=== PATIENT | male | born 1970 | race Caucasian/White ===

== ENCOUNTER 2024-01-07 08:11 | Outpatient (AMB) | payer BC, SELFPAY ==
--- NOTE | 2024-01-07 08:23 | MHC.OFFWIV ---
Intake Vital Signs 01/07/24 08:27 Height 6 ft 1 in BP 140/80 H Blood Pressure Location Rt brachial Position Sitting Pulse 78 Pulse Source Pulse Oximeter Temp 97.9 F Temp Source Oral Pulse Oximetry (%) 98 Intake Visit Reasons: EP Stomach issue Intake Note: pt is here for blood when having bowel movements, when wiping and toilet bowl, and also side pain that has been on and off Patient Tobacco Use Status: Never used Tobacco Allergies penicillin V Allergy (Unknown, Verified 01/07/24 08:54) had an episode of rash when he was a child Medication List - Last Reconciled 01/07/24 by SUMAN Byers No Known Home Meds Do you need a note to return to daycare/school/sports/work: No HPI HPI Comments History of Present Illness Details Patient is a 53-year-old male in today for a sick. He reports 5 days prior to this appointment that he developed pain in the right lower quadrant while he was mowing his lawn. States that he had intermittent pain after that that has gotten progressively better. Patient states that the pain has resolved today. Denies any fever chills, denies any nausea/vomiting/diarrhea. Patient has not utilized any medications at this time. [facility] Social History Patient Tobacco Use Status: Never used Tobacco Review of Systems Const All systems reviewed & are unremarkable except as noted in HPI and below Physical Exam Vital Signs: Last Vital Signs Temp 97.9 F 01/07/24 08:27 Pulse 78 01/07/24 08:27 BP 140/80 H 01/07/24 08:27 Pulse Ox 98 01/07/24 08:27 Const Other: Appearance: Alert.? Oriented X3.? No acute distress.? Head: Normocephalic, atraumatic Eyes: Pupils equal, round and reactive to light.? ENT: Pharynx normal.? Neck: Normal inspection.? Neck supple.? CVS: Normal heart rate and rhythm.? Pulses normal.? Respiratory: No respiratory distress.? Breath sounds normal.? Abdomen: Soft and nontender.? Neuro: Oriented X 3.? No motor deficit.? No sensory deficit. CN 2-12 intact Assessment & Plan Assessment & Plan (1) Abdominal pain: Comment: Pain had resolved by today. No tenderness to palpation and deep palpation. Will draw labs including CBC, CMP, ESR, lipase, amylase, CRP. Code(s): R10.9 - Unspecified abdominal pain Qualifiers: Abdominal location: right lower quadrant Qualified Code(s): R10.31 - Right lower quadrant pain Plan: Take your medications as prescribed. If you were prescribed antibiotics today, it is important that you take your medication to their entirety, do not skip any doses, do not finish them early. Follow-up with your primary care provider this week. Return to the emergency department with new or worsening symptoms. Such as fevers, chills, chest pain, shortness of breath, nausea, vomiting, dizziness, headache, vision changes, lethargy In case of emergency call 911 Plan Follow up with PCP. Orders: Orders Erythrocyte Sedimentation Rate Today R10.9 - Unspecified abdominal pain Lipase Today R10.9 - Unspecified abdominal pain Complete Blood Count Auto Diff Today R10.9 - Unspecified abdominal pain Comprehensive Met. Panel Today R10.9 - Unspecified abdominal pain C Reactive Protein Today R10.9 - Unspecified abdominal pain Amylase Today R10.9 - Unspecified abdominal pain Coding Level of Care Code Est Pt Level 3 (40702) Diagnoses Right lower quadrant abdominal pain R10.31 Abdominal location: right lower quadrant Time Spent (min) 21
[2024-01-07 08:27] VITALS: BP 140/80; PULSE 78; TEMP 36.6; O2SAT 98
== END 2024-01-07 09:09 | disposition home or self-care (01) ==
PROVIDERS: PCP Physician Assistant; Visit Provider Nurse Practitioner Primary Care
DX: R10.31 Right lower quadrant pain (principal)
CPT/HCPCS: 99213

== ENCOUNTER 2024-01-07 08:53 | Outpatient (REF) | payer BC, SELFPAY ==
[2024-01-07 10:12] LABS: MANUAL DIFF FLAG NO
[2024-01-07 10:21] LABS: Basophils Percent Auto 0.4 % (0-2); Eosinophils Absolute Auto 0.1 X10*3/uL (0.0-0.4); Eosinophils Percent Auto 1.5 % (0-4); Hematocrit 43.8 % (42.0-52.0); Hemoglobin 15.4 g/dl (14.0-18.0); Imm Gran Abs Auto 0.01 X10*3/uL (0.00-0.03); Imm Gran Pct Auto 0.2 % (0.0-0.4); Lymphocytes Absolute Auto 1.6 X10*3/uL (1.2-4.9); Lymphocytes Percent Auto 29.9 % (20-40); Mean Corpuscular HGB Conc 35.2 g/dl (31.0-36.0); Mean Corpuscular Hemoglobin 30.5 pg (27.0-33.0); Mean Corpuscular Volume 86.7 fL (80.0-98.0); Mean Platelet Volume 9.9 fL (9.4-12.4); Monocytes Absolute Auto 0.4 X10*3/uL (0.1-1.2); Monocytes Percent Auto 8.2 % (2-11); Neutrophils Absolute Auto 3.1 x10*3/uL (2.0-8.3); Neutrophils Percent Auto 59.8 % (45-73); Platelet Count 183 X10*3/uL (160-400); Red Blood Count 5.05 X10*6/uL (4.60-5.80); White Blood Count 5.2 X10*3/uL (4.8-10.8)
[2024-01-07 10:56] LABS: Alanine Aminotransferase 29 U/L (0-40); Albumin Level 4.4 g/dL (3.5-5.0); Alkaline Phosphatase 51 U/L (39-117); Amylase 41 U/L (28-100); Anion Gap 10 (12-20); Aspartate Amino Transferase 21 U/L (5-37); Bilirubin Total 0.5 mg/dL (0.0-1.0); Blood Urea Nitrogen 15 mg/dL (9-16); C Reactive Protein 0.11 mg/dL (< or = 0.50); Calcium 9.4 mg/dL (8.4-10.2); Carbon Dioxide 28 mmol/L (22-29); Chloride 108 mmol/L (96-108); Estimated Glomerular Filt Rate > 60; Glucose Random 106 mg/dL (60-115); Lipase 24 U/L (8-78); Potassium 4.1 mmol/L (3.3-5.1); Sodium 142 mmol/L (135-145); Total Protein 6.8 g/dL (6.5-8.0)
[2024-01-07 11:16] LABS: Erythrocyte Sedimentation Rate 2 MM/HR (0-15)
== END 2024-01-07 08:54 | disposition home or self-care (01) ==
LOC: HO.HMGCLDS 08:53
PROVIDERS: Visit Provider Nurse Practitioner Primary Care
DX: R10.9 Unspecified abdominal pain (principal)
CPT/HCPCS: 36415; 80053; 82150; 83690; 85025; 85652; 86140

== ENCOUNTER 2024-01-30 09:19 | Outpatient (AMB) | payer BC, SELFPAY ==
--- NOTE | 2024-01-30 09:28 | A.OFFPC_ITS ---
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 He is in need of a complete physical exam. 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 He is overdue for initial screening colonoscopy. Patient referred for this today. He was seen at urgent care in [place] a couple weeks ago for right lower quadrant abdominal pain. He was diagnosed with a muscle strain. Pain resolved. Advised patient to schedule eye and dental exams. On ROS notes skin lesion x years on the abdomen that has slowly enlarged over time. Declines all vaccinations recommended today. [facility] Medical History (Updated 01/30/24 @ 10:18 by JASEN Curtis) Skin lesion Family History (Updated 01/30/24 @ 09:37 by Xuan Avila CMA) Mother HTN (hypertension) Cardiovascular disease Ovarian cancer Glaucoma Father Alcoholism Other FHx: mental illness Substance abuse Social History (Updated 01/30/24 @ 09:39 by Xuan Avila CMA) Housing: House Patient Tobacco Use Status: Former Tobacco user Cigarette Packs Per Day: 0.5 Years Smoked: 32 e-Cigarette/Vaping Use: Never Used Second Hand Smoke Exposure: No service: No Current occupational status: employed Current occupation: [employer] Current occupational exposures/hazards: No Cognitive needs: No Hearing needs: No Vision needs: No Questionnaire PHQ-9 Over the last 2 weeks, how often have you been bothered by any of the following problems? 1. Little interest or pleasure in doing things: not at all 2. Feeling down, depressed, or hopeless: not at all 3. Trouble falling or staying asleep, or sleeping too much: several days 4. Feeling tired or having little energy: several days 5. Poor appetite or overeating: not at all 6. Feeling bad about yourself - or that you are a failure or have let yourself or your family down: not at all 7. Trouble concentrating on things, such as reading the newspaper or watching television: not at all 8. Moving or speaking so slowly that other people could have noticed. Or the opposite - being so fidgety or restless that you have been moving around a lot more than usual: not at all 9. Thoughts that you would be better off or of hurting yourself in some way: not at all Total score: 2 Depression Screening Interpretation: Negative Depression Screening Done: Yes 15443 - PHQ-9 Billing: Yes Source: Developed by Drs. Carlos Manuel Carpio, Ceci Adhikari, John Antonio and colleagues, with an educational hiro from [employer]. Thrive Questionnaire Date Thrive assessed: 01/30/24 I am a: Patient What is your living situation today?: I have a steady place to live Within the past 12 months, did the food you bought not last and you didn't have the money to get more?: Never true Within the past 12 months, did you worry whether your food would run out before you got money to buy more?: Never true Do you have trouble paying for medicines?: No Do you have trouble getting transportation to medical appointments?: No Do you have trouble paying your heating and electricity bill?: No Do you have trouble taking care of your child, family member or friend?: No Do you have trouble with day-to-day activities such as bathing, preparing meals, shopping, managing finances, etc.?: No Are you currently unemployed and looking for a job?: No Are you interested in more education?: No Please select the resources that you would like help with: None Currently or been in a relationship where the following occur: no concerns reported THRIVE Score: 0 AUDIT C Alcohol Use Questionnaire (AUDIT-C) 1. How often do you have a drink containing alcohol?: 2-4 times a month 2. How many drinks containing alcohol do you have on a typical day when you are drinking?: 7 to 9 3. How often do you have six or more drinks on one occasion?: Weekly Total Score: 8 Score Reviewed/Action Taken: Yes (Discussed. Patient advised to decrease alcohol consumption. ) TREVIN-7 AMB Questionnaire TREVIN-7 Date TREVIN - 7 assessed: 01/30/24 Feeling nervous, anxious, or on edge: 0 = Not at all Not being able to stop or control worryin = Not at all Worrying too much about different things: 0 = Not at all Trouble relaxin = Several days Being so restless that it is hard to sit still: 0 = Not at all Becoming easily annoyed or irritable: 1 = Several days Feeling afraid as if something awful might happen: 1 = Several days Total TREVIN-7 score (0-4 normal; 5-9 mild; 10-14 moderate; 15-21 severe): 3 Source: Developed by Drs. Carlos Manuel Carpio, Ceci dAhikari, John Antonio and colleagues, with an educational hiro from [employer]. TREVIN-7 Assessment Billing TREVIN-7 Assessment Tool: TREVIN-7 Assessment 51562 Review of Systems Const Details: Constitutional: No unexplained weight loss, fever, chills, fatigue or night sweats. Eyes: No vision changes, blurry vision, double vision, eye pain, eye redness, eye discharge. ENT: No hearing loss, sneezing, congestion, runny nose or sore throat. Respiratory: No shortness of breath, cough or sputum production. Cardiovascular: No chest pain, chest pressure or chest discomfort. No palpitations or pedal edema. Gastrointestinal: No anorexia, nausea, vomiting or diarrhea. see HPI. Genitourinary: No dysuria, hematuria, urinary frequency. Neurologic: No headache, dizziness, syncope, unilateral weakness, ataxia, numbness or tingling in the extremities. Musculoskeletal: No muscle pain, back pain, joint pain or swelling. Hematologic/Lymphatics: No bleeding or bruising. No painful lymph nodes. Skin: No rash or itching. Endocrine: No cold or heat intolerance. No polyuria or polydipsia. Psychiatric: No depression or anxiety. No SI/HI. Physical exam (Primary Care) Vital Signs: Last Vital Signs Temp 97.9 F 01/30/24 09:40 Pulse 70 01/30/24 09:40 Resp 16 01/30/24 09:40 BP 120/82 01/30/24 12:34 Pulse Ox 98 01/30/24 09:40 Oxygen Delivery Method Room Air 01/30/24 09:40 BMI result Body Mass Index 27.5 Tobacco/Smoking Status: Tobacco use Status Tobacco use date assessed 01/30/24 01/30/24 09:44 Patient Tobacco Use Status Former Tobacco user 01/30/24 09:44 e-Cigarette/Vaping Use Never Used 01/30/24 09:44 PHQ-9: PHQ-9 Score PHQ-9: Total score 2 01/30/24 12:45 Depression Screening Interpretation: Negative Thrive Assessment: Date of Thrive Assessment Date Thrive assessed 01/30/24 01/30/24 09:44 Currently or been in a relationship where the following occur: no concerns reported Const Other: Constitutional: Alert, in no distress. Head: Normocephalic. Eyes: Pupils are equal, round and reactive to light. Extraocular muscles intact. Ear, Nose and Throat: Canals clear. TMs normal. Normal nasal mucosa. No nasal discharge. No oral lesions. Neck: Supple, Full range of motion. No lymphadenopathy. No palpable thyroid masses. Respiratory: Clear to auscultation. Cardiovascular: S1 S2 regular. No murmurs. No carotid bruits. Gastrointestinal: Abdomen soft, non-tender, non-distended. Normal bowel sounds. No palpable masses. Genitourinary: Patient deferred exam. Neurologic: No focal neurological deficits. Symmetric patellar reflexes. Moves all extremities spontaneously. Sensation intact bilaterally. Skin: ~1.5 cm raised erythematous/brownish irregularly shaped skin lesion on the right abdomen. Musculoskeletal: No gross deformities. Normal range of motion. Extremities: Warm and well perfused. No clubbing, cyanosis or edema. 3+ peripheral pulses bilaterally. Psychiatric: Normal mood and affect Assessment and Plan Assessment & Plan (1) Annual physical exam: Code(s): Z00.00 - Encounter for general adult medical examination without abnormal findings Plan: Patient is seen today for a routine physical. As part of this visit we reviewed the following issues, which are considered and essential part of preventative health in this age group: - Testicular cancer screening - Screening for colon cancer - Discussed Prostate cancer screening - Blood pressure screening annually - Cholesterol screening - Nutritional and exercise counseling - Counseling of injury prevention including fire prevention, smoke alarms and seat belt usage - Screening for depression - Education about skin cancer - Recommendations about immunizations - Recommendation of an eye exam - Screening for substance abuse (2) Encounter for screening for malignant neoplasm of prostate: Code(s): Z12.5 - Encounter for screening for malignant neoplasm of prostate (3) Screening for cardiovascular condition: Code(s): Z13.6 - Encounter for screening for cardiovascular disorders (4) Skin lesion: Code(s): L98.9 - Disorder of the skin and subcutaneous tissue, unspecified Plan: Referred to dermatology for evaluation. Orders: Orders Lipid Panel Today L98.9 - Disorder of the skin and subcutaneous tissue, unspecified, Z12.5 - Encounter for screening for malignant neoplasm of prostate, Z13.6 - Encounter for screening for cardiovascular disorders Complete Blood Count no Diff Today L98.9 - Disorder of the skin and subcutaneous tissue, unspecified, Z12.5 - Encounter for screening for malignant neoplasm of prostate, Z13.6 - Encounter for screening for cardiovascular d isorders Comprehensive Met. Panel Today L98.9 - Disorder of the skin and subcutaneous tissue, unspecified, Z12.5 - Encounter for screening for malignant neoplasm of prostate, Z13.6 - Encounter for screening for cardiovascular disorders Prostate Specific Antigen Today L98.9 - Disorder of the skin and subcutaneous tissue, unspecified, Z12.5 - Encounter for screening for malignant neoplasm of prostate, Z13.6 - Encounter for screening for cardiovascular disorders Referrals Dermatology Referral L98.9 - Disorder of the skin and subcutaneous tissue, unspecified Open Access Screening Colonoscopy Referral Z12.11 - Encounter for screening for malignant neoplasm of colon, Z12.12 - Encounter for screening for malignant neoplasm of rectum Coding Level of Care Code New Pt Prev Care 40-64y(63422) Diagnoses Annual physical exam Z00.00 Encounter for screening for malignant neoplasm of prostate Z12.5 Screening for cardiovascular condition Z13.6 Skin lesion L98.9 Additional Codes TREVIN-7 Assessment Billing - TREVIN-7 Assessment Tool: TREVIN-7 Assessment 50093 ([id number])
[2024-01-30 09:40] VITALS: BP 118/88; PULSE 70; RESP 16; TEMP 36.6; O2SAT 98; BMI 27.5
[2024-01-30 12:34] VITALS: BP 120/82
== END 2024-01-30 12:58 | disposition home or self-care (01) ==
PROVIDERS: PCP Physician Assistant Medical; Visit Provider Physician Assistant Medical
DX: Z00.00 Encounter for general adult medical examination without abnormal findings (principal); Z12.5 Encounter for screening for malignant neoplasm of prostate; Z13.6 Encounter for screening for cardiovascular disorders; L98.9 Disorder of the skin and subcutaneous tissue, unspecified
CPT/HCPCS: 99386

== ENCOUNTER 2024-01-30 10:36 | Outpatient (REF) | payer BC, SELFPAY ==
[2024-01-30 11:59] LABS: Hematocrit 45.5 % (42.0-52.0); Hemoglobin 15.8 g/dl (14.0-18.0); Mean Corpuscular HGB Conc 34.7 g/dl (31.0-36.0); Mean Corpuscular Hemoglobin 30.1 pg (27.0-33.0); Mean Corpuscular Volume 86.7 fL (80.0-98.0); Platelet Count 193 X10*3/uL (160-400); Red Blood Count 5.25 X10*6/uL (4.60-5.80); Red Cell Distribution Width 12.9 % (11.0-16.0); White Blood Count 4.6 X10*3/uL (4.8-10.8)
[2024-01-30 12:27] LABS: Alanine Aminotransferase 41 U/L (0-40); Albumin Level 4.6 g/dL (3.5-5.0); Alkaline Phosphatase 53 U/L (39-117); Anion Gap 11 (12-20); Aspartate Amino Transferase 26 U/L (5-37); Bilirubin Total 0.7 mg/dL (0.0-1.0); Blood Urea Nitrogen 16 mg/dL (9-16); Calcium 9.4 mg/dL (8.4-10.2); Carbon Dioxide 29 mmol/L (22-29); Chloride 104 mmol/L (96-108); Cholesterol 235 mg/dL (<200); Estimated Glomerular Filt Rate > 60; Glucose Random 94 mg/dL (60-115); HDL Cholesterol 46 mg/dL (>40); LDL Cholesterol Calculated 140 mg/dL (<100); Potassium 3.7 mmol/L (3.3-5.1); Sodium 140 mmol/L (135-145); Total Protein 7.2 g/dL (6.5-8.0); Triglycerides 246 mg/dL (<150)
[2024-01-30 12:37] LABS: Prostate Specific Antigen 0.74 ng/mL (<0.05-4.0)
== END 2024-01-30 10:37 | disposition home or self-care (01) ==
LOC: HO.WFDLDS 10:36
PROVIDERS: Visit Provider Physician Assistant Medical
DX: Z13.6 Encounter for screening for cardiovascular disorders (principal); Z12.5 Encounter for screening for malignant neoplasm of prostate; L98.9 Disorder of the skin and subcutaneous tissue, unspecified
CPT/HCPCS: 36415; 80053; 80061; 84153; 85027

== ENCOUNTER 2024-04-29 07:31 | Outpatient (REF) | payer BC, SELFPAY ==
[2024-04-29 11:56] LABS: Alanine Aminotransferase 34 U/L (0-40); Aspartate Amino Transferase 26 U/L (5-37); Cholesterol 223 mg/dL (<200); HDL Cholesterol 45 mg/dL (>40); LDL Cholesterol Calculated 148 mg/dL (<100); Triglycerides 154 mg/dL (<150)
== END 2024-04-29 07:32 | disposition home or self-care (01) ==
LOC: HO.WFDLDS 07:31
PROVIDERS: Visit Provider Physician Assistant Medical
DX: E78.5 Hyperlipidemia, unspecified (principal); Z78.9 Other specified health status
CPT/HCPCS: 36415; 80061; 84450; 84460

== ENCOUNTER 2024-05-07 15:00 | Outpatient (AMB) | payer BC, SELFPAY ==
--- NOTE | 2024-05-07 15:19 | MHC.PC.OV ---
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 Since blood work in 02/06/2024 ALT normalized. It is 34. AST is also normal at 26. He decreased alcohol consumption. Modified his diet. He lost some weight. His triglycerides decreased from 246-154. His total cholesterol decreased from 235-223. His LDL cholesterol increased from 140-148. His HDL cholesterol is 45. He eats a lot of cheese. ASCVD risk score is 16.5%. Patient's brother at age 59. They are not sure exactly the cause since he diet alone at home. He was not found for a few days. Patient is a former smoker. On ROS patient said he has had chest pain before. He had an episode a few years ago that he felt like he was having a heart attack, but it was a panic attack. He was seen at the ER. Patient says occasionally he will get a mild twinge in his chest on the right or left side associated with stress. It does not occur with exertion. He actually feels best when he is very active. He had this last night when he was anxious. It lasted 3 minutes and left-sided. It did not radiate. There was no dizziness, shortness of breath or diaphoresis. His blood pressure is 124/86. ROS: Constitutional: No unexplained weight loss, fever, chills, fatigue or night sweats. Eyes: No vision changes, blurry vision, double vision Respiratory: No shortness of breath, cough or sputum production. Cardiovascular: No palpitations or pedal edema. Gastrointestinal: No anorexia, nausea, vomiting or diarrhea. No abdominal pain or blood in stool. Neurologic: No headache, dizziness, syncope, unilateral weakness, ataxia, numbness or tingling in the extremities. Skin: No rash or itching. Endocrine: No cold or heat intolerance. No polyuria or polydipsia. Psychiatric: No depression Physical exam: Constitutional: Alert, in no distress. Eyes: Pupils are equal, round and reactive to light. Extraocular muscles intact. Neck: Supple, Full range of motion. No lymphadenopathy. Respiratory: Clear to auscultation. Cardiovascular: S1 S2 regular. No murmurs. . Gastrointestinal: Abdomen soft, non-tender, non-distended. Normal bowel sounds. No palpable masses. Neurologic: No focal neurological deficits Extremities: Warm and well perfused. No clubbing, cyanosis or edema. 3+ peripheral pulses bilaterally. Psychiatric: Normal mood and affect [facility] Medical History (Updated 05/07/24 @ 17:11 by JASEN Curtis) Elevated blood pressure reading Chest discomfort Hyperlipidemia Skin lesion Family History (Updated 01/30/24 @ 09:37 by Xuan Avila CMA) Mother HTN (hypertension) Cardiovascular disease Ovarian cancer Glaucoma Father Alcoholism Other FHx: mental illness Substance abuse Social History (Updated 01/30/24 @ 09:39 by Xuan Avila CMA) Housing: House Patient Tobacco Use Status: Former Tobacco user Cigarette Packs Per Day: 0.5 Years Smoked: 32 e-Cigarette/Vaping Use: Never Used Second Hand Smoke Exposure: No service: No Current occupational status: employed 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 Carlos Manuel Carpio, Ceci Adhikari, John Antonio and colleagues, with an educational hiro from [employer]. Physical exam (Primary Care) Vital Signs: Last Vital Signs Pulse 82 05/07/24 15:20 Resp 16 05/07/24 15:20 BP 124/86 05/07/24 15:20 Pulse Ox 96 05/07/24 15:20 Oxygen Delivery Method Room Air 05/07/24 15:20 BMI result Body Mass Index 26.0 Tobacco/Smoking Status: Tobacco use Status Tobacco use date assessed 01/30/24 05/07/24 15:24 Patient Tobacco Use Status Former Tobacco user 05/07/24 15:24 e-Cigarette/Vaping Use Never Used 05/07/24 15:24 Thrive Assessment: Date of Thrive Assessment Date Thrive assessed 01/30/24 05/07/24 15:24 Office Procedures EKG Details: EKG shows normal sinus rhythm with sinus arrhythmia and 64 beats per minute. No ischemic changes. [id number], Complete Assessment and Plan Assessment & Plan (1) Chest discomfort: Code(s): R07.89 - Other chest pain (2) Hyperlipidemia: Code(s): E78.5 - Hyperlipidemia, unspecified Qualifiers: Hyperlipidemia type: mixed hyperlipidemia Qualified Code(s): E78.2 - Mixed hyperlipidemia (3) Elevated blood pressure reading: Code(s): R03.0 - Elevated blood-pressure reading, without diagnosis of hypertension Plan Differential for chest discomfort includes anxiety, GERD, musculoskeletal strain. Aortic dissection highly unlikely as patient is hemodynamically stable and symptoms resolved. PE also unlikely as he is not hypoxic and does not have any shortness of breath and symptoms resolved. Patient has no fevers or cough or symptoms today that would be consistent with pneumonia. ACS unlikely given clinical presentation nonischemic EKG today. Recommended checking labs including cardiac enzymes and going to ER if these are elevated given risk factors for heart disease. Patient refuses. Warning signs warranting ER evaluation reviewed with the patient. Discussed coronary artery calcium test given elevated ASCVD risk score, stress test and echocardiogram. He declines these tests. I also recommended starting a statin, but he says that he is not interested in taking any medications like this. His blood pressure is mildly elevated. He declines medication. He will continue to work on lifestyle modifications. Patient states he prefers ?all natural? methods. If he changes his mind he will contact me at the office. We discussed that failure to have testing done and start recommended medications can result in delayed diagnosis, increase risk of morbidity and mortality. He will be due for his physical in 02/05/2025. Orders: Orders AMB EKG-In Office Today R07.89 - Other chest pain Coding Level of Care Code Est Pt Level 4 (19668) Complex EM visit Add On G2211 Diagnoses Chest discomfort R07.89 Mixed hyperlipidemia E78.2 Hyperlipidemia type: mixed hyperlipidemia Elevated blood pressure reading R03.0 CPT Codes EKG - CPT: 32229-[id number], Complete ([id number])
[2024-05-07 15:20] VITALS: BP 124/86; PULSE 82; RESP 16; O2SAT 96; BMI 26.0
== END 2024-05-07 16:11 | disposition home or self-care (01) ==
PROVIDERS: PCP Physician Assistant Medical; Visit Provider Physician Assistant Medical
DX: R07.89 Other chest pain (principal); E78.2 Mixed hyperlipidemia; R03.0 Elevated blood-pressure reading, without diagnosis of hypertension

== ENCOUNTER → 2024-05-07 15:00 | Outpatient (BNVA) | payer BC, SELFPAY | PROVIDERS: PCP Physician Assistant Medical; Visit Provider Physician Assistant Medical | DX: R07.89 Other chest pain (principal); E78.2 Mixed hyperlipidemia; R03.0 Elevated blood-pressure reading, without diagnosis of hypertension | CPT/HCPCS: 93005 ==

== ENCOUNTER 2024-07-27 07:48 | Outpatient (AMB) | payer BC, SELFPAY ==
[2024-07-27 08:05] VITALS: BP 128/82; PULSE 72; O2SAT 98; BMI 27.0
--- NOTE | 2024-07-27 08:05 | A.OFFVIS_ITS ---
Vital Signs 07/27/24 08:05 Height 6 ft Weight 199 lb 4.766 oz BMI 27.0 BP 128/82 Blood Pressure Location Rt brachial Position Sitting Pulse 72 Pulse Source Pulse Oximeter Pulse Oximetry (%) 98 Oxygen Delivery Method Room Air Intake Visit Reasons: Colonoscopy Screening Intake Note: NEW PATIENT Rishabh presents in office today for a scheduled colonoscopy consultation Prior hx of colo/egd? Pt has not had one in his adult life. One possible in adolescence. Meds reviewed? Y Allergies reviewed? Y Any significant concerns or questions? Pt reports intermittent hematochezia which he attributes to possible hemorrhoids. Pharmacy verified? [facility] Required: No Allergies penicillin V Allergy (Unknown, Verified 07/27/24 08:11) had an episode of rash when he was a child HPI HPI Colonoscopy Screening: Details: 54 year old? male with past medical history of hyperlipidemia is here today for pre colonoscopy screening.? Patient was sent to us by his PCP.? Patient had 1st colonoscopy at age 15 for change in bowel movements. Patient had diarrhea, normal colonoscopy. Patient was diagnosed with lactose intolerance. Patient denies any gastrointestinal symptoms. Denies any personal or family history of gastrointestinal disease, colon polyps, or CRC.? Denies history of difficulty with sedation or anesthesia in the past.? Negative for history of sleep apnea.? Denies any history of cardiac, renal, pulmonary, or hepatic disease.?? No history of infectious? diseases like hepatitis A, B, C, HIV or tuberculosis.? Patient is not on any anticoagulation [facility] Medical History Elevated blood pressure reading Chest discomfort Hyperlipidemia Skin lesion Family History Mother HTN (hypertension) Cardiovascular disease Ovarian cancer Glaucoma Father Alcoholism Other FHx: mental illness Substance abuse Social History Housing: House Patient Tobacco Use Status: Former Tobacco user Cigarette Packs Per Day: 0.5 Years Smoked: 32 e-Cigarette/Vaping Use: Never Used Second Hand Smoke Exposure: No service: No Current occupational status: employed Current occupation: [employer] Current occupational exposures/hazards: No Cognitive needs: No Hearing needs: No Vision needs: No Review of Systems Const Denies weight gain and Denies weight loss ENT Reports no additional complaints, Denies dysphagia and Denies odynophagia Card Reports no additional complaints Resp Reports no additional complaints GI Denies abdominal pain, Denies belching, Denies melena, Denies bloating, Reports hematochezia, Denies change in bowel habits, Denies dysphagia, Denies excessive flatus, Denies dyspepsia, Denies heartburn, Denies diarrhea, Denies loose stools, Denies nausea, Denies odynophagia and Denies vomiting Reports no additional complaints Musc Reports no additional complaints Neuro Reports no additional complaints Psych Reports no additional complaints Endo Reports no additional complaints Physical Exam Vital Signs: Last Vital Signs Pulse 72 07/27/24 08:05 BP 128/82 07/27/24 08:05 Pulse Ox 98 07/27/24 08:05 Oxygen Delivery Method Room Air 07/27/24 08:05 BMI result Body Mass Index 27.0 Const General: healthy appearing, no acute distress and well developed Nutritional Appearance: well nourished Orientation/consciousness: patient oriented x3 Resp Effort & Inspection: normal respiratory effort, able to speak in complete sentences, no tracheal deviation and symmetric chest movement Auscultation: clear to auscultation bilaterally Cardio Rate: regular rate GI Inspection: Yes normal to inspection and No distended Palpation (GI): Soft to palpation, not firm, nontender and No hepatosplenomegaly present Auscultation: normal bowel sounds General: Yes no CVA tenderness Back/Spine/Pelvis Back: no CVA tenderness Skin General skin exam: elasticity normal, turgor normal and dry skin Neuro General: patient oriented x3 Psych Appearance: grossly normal Mental Status: mental status grossly normal Assessment & Plan Assessment & Plan (1) Screen for colon cancer: Code(s): Z12.11 - Encounter for screening for malignant neoplasm of colon Plan Patient denies any GI, cardiac or respiratory symptoms.? Denies any issues with anesthesia in the past.? Denies any history of sleep apnea.? No history infectious diseases in the past or present.? Not on any anticoagulation therapy.? No family or personal history of colon cancer or polyps.? Patient denies melena, hematochezia, unintentional weight loss or ribbon like stools.? Discussed at length the pre-procedure,? prep, diet & medications as well as what to expect prior, during and after the procedure.?? Stressed the importance of good bowel prep.? Recommended the use of Vaseline or Calmoseptine OTC & baby wipes with bowel movements to promote comfort.? ?Patient verbalizes understanding and agrees to plan of care.? He was given the opportunity to ask questions and all questions answered.? We will see him after the procedure.? Medications: New polyethylene glycol 3350 (Miralax) As directed by gastroenterology department at [facility] 238 grams PO ONCE 238 grams 0RF Z12.11 - Encounter for screening for malignant neoplasm of colon bisacodyl (Dulcolax (bisacodyl)) take 4 tabs at noon the day before your colonoscopy 20 mg (4 x 5 mg) PO ONCE 1 day 4 tabs 0RF Z12.11 - Encounter for screening for malignant neoplasm of colon Coding Level of Care Code New Pt Level 3 (88116) Diagnoses Screen for colon cancer Z12.11 Time Spent (min) 40 Comment 30 minutes spent with patient and additional 10 minutes spent reviewing his records
== END 2024-07-27 09:07 | disposition home or self-care (01) ==
PROVIDERS: PCP Physician Assistant Medical; Visit Provider Nurse Practitioner Family
DX: Z01.818 Encounter for other preprocedural examination (principal); Z12.11 Encounter for screening for malignant neoplasm of colon
CPT/HCPCS: S0285

== ENCOUNTER 2024-10-19 11:10 | Day surgery (SDC) | payer BC, SELFPAY ==
--- NOTE | 2024-10-16 10:32 | P.CONAN_ITS ---
Documented by User: Carolina Rendon NP 10/16/24 10:33 HPI - Anesthesia Eval Consult details Narrative: 54yo M for Colonoscopy PMFSH Active Problems Active Problems: All Active Problems Elevated blood pressure reading (Acute) Chest discomfort (Acute) Hyperlipidemia (Acute) Skin lesion (Acute) Abdominal pain (Acute) Past Medical History Medical History Elevated blood pressure reading Chest discomfort Hyperlipidemia Skin lesion Family History Family History Mother HTN (hypertension) Cardiovascular disease Ovarian cancer Glaucoma Father Alcoholism Other FHx: mental illness Substance abuse Social History Social History Housing: House Patient Tobacco Use Status: Former Tobacco user Cigarette Packs Per Day: 0.5 Years Smoked: 32 e-Cigarette/Vaping Use: Never Used Second Hand Smoke Exposure: No service: No Current occupational status: employed Current occupation: [employer] Current occupational exposures/hazards: No Cognitive needs: No Hearing needs: No Vision needs: No Meds Allergies Allergy/AdvReac Type Severity Reaction Status Date / Time penicillin V Allergy Unknown had an Verified 07/27/24 08:11 episode of rash when he was a child Exam Narrative Narrative: EKG 04/2024 NSR with SA @ 64 Assessment and Plan Assessment Anesthesia Assessment: Chart Reviewed Documented by User: Tiffanie Alexis MD 10/19/24 12:42 PMFSH Past Medical History Medical History Elevated blood pressure reading Chest discomfort Hyperlipidemia Skin lesion Family History Family History Mother HTN (hypertension) Cardiovascular disease Ovarian cancer Glaucoma Father Alcoholism Other FHx: mental illness Substance abuse Surgical History History of Problems with Anesthesia: No Social History Social History Housing: House Patient Tobacco Use Status: Former Tobacco user Cigarette Packs Per Day: 0.5 Years Smoked: 32 e-Cigarette/Vaping Use: Never Used Second Hand Smoke Exposure: No service: No Current occupational status: employed Current occupation: [employer] Current occupational exposures/hazards: No Cognitive needs: No Hearing needs: No Vision needs: No Meds Allergies Allergy/AdvReac Type Severity Reaction Status Date / Time penicillin V Allergy Unknown had an Verified 07/27/24 08:11 episode of rash when he was a child Exam Airway Mallampati Class: II TM Dist: >3cm Neck ROM: Full Loose/Missing/Broken Teeth: No Heart: RRR Lungs: CTA Assessment and Plan Assessment Anesthesia Assessment: Anesthesia Plan Discussed Final Anesthetic Review History of Problems with Anesthesia: No NPO: Yes ASA Class: II Final Preanesthetic Review: Meds/Allgs Chart Reviewed, Consent Obtained/Reviewed and Anes Risks/Benef Reviewed Patient Risk: Low Procedure Risk: Low Anesthetic Plan Anesthetic Plan: MAC: Disposition: Standard PACU
--- NOTE | 2024-10-19 12:03 | P.HPSUR_ITS ---
Pre-Procedural Eval Section A - 24 Hr Update-Section A only Date of Service: 10/19/24 The patient is an INPATIENT: No The patient has been examined within 24 hours of the surgical procedure. The History & Physical has been completed within 30 days and I have reviewed it.: No Section B - Complete if H&P > 30 days Chief Complaint: Colon cancer screening, rectal bleeding Relevant Family History (Specify if Yes): No Relevant Social History: Tobacco Use (Former smoker) Present Medications: see Short Stay Collaborative assessment Medical History: Significant History (Chest discomfort Hyperlipidemia Skin lesion) History of Previous Operations: Relevant previous surgery/procedure and date(s) (History of colonoscopy) Allergies: Allergies Allergy/AdvReac Type Severity Reaction Status Date / Time penicillin V Allergy Unknown had an Verified 07/27/24 08:11 episode of rash when he was a child Review of Systems Sugical H&P ROS: Negative: Constitution, Cardiovascular, Respiratory and Gastr ointestinal Exam Surgical H&P Exam: Normal: Heart, Normal: Lungs, Normal: Extremities and Normal: Abdomen Plan Diagnosis/Plan: Unchanged I have reviewed the history and physical and performed a pertinent physical examination on my patient. No changes have occurred unless specified. Time Spent With Patient Time: Total time managing care of this patient today ____ minutes.
[2024-10-19 12:37] VITALS: BP 125/89; PULSE 76; RESP 16; TEMP 36.6; O2SAT 98; BMI 26.5
[2024-10-19] MEDS: Lactated Ringers 1,000 ML 100 ML IVCONT (12:46)
--- NOTE | 2024-10-19 13:13 | P.OPN-COLO_ITS ---
Colonoscopy Operative Note Operative Note Date of Service: 10/19/24 Narrative: COLONOSCOPY TILL CECUM WITH SNARE POLYPECTOMY Pre-op diagnosis: Colon cancer screening (2nd colon), rectal bleeding. Post-op diagnosis:? colon polyp, Diverticulosis, hemorrhoids Endoscopist:? Carlie Capone MD Anesthesia:?MAC Consent: Indications for the procedure and potential complications of bleeding, perforation, reaction to medications and missed diagnosis were discussed with the patient and informed consent was obtained. Instrument: Olympus CF H 190 L variable stiffness adult colonoscope Monitoring: Vital signs and clinical assessment, intermittent blood pressure monitoring, continuous EKG monitoring, Pulse oximetry and Carbon Dioxide monitoring were done throughout the procedure. Please see anesthesia flowsheet. Colon withdrawl time was 12 minutes. Procedure: The patient was placed in the left lateral decubitis position and pre-procedure medications were administered. After a digital rectal examination of the ano-rectum, the video colonoscope was inserted into the rectum and advanced through the colon to the cecum. The colonoscope was slowly withdrawn in a retrograde panoramic fashion and the colon mucosa was carefully examined including a retroflexed view of the rectum. Findings and interventions are described below. Procedure Difficulty: without difficulty Findings: Terminal Ileum: Not evaluated Cecum: Normal Ascending Colon: A 10-12 mm sessile polyp in the mid AC - removed with a hot snare Transverse Colon: Normal Descending Colon: Normal Sigmoid Colon: Moderate diverticulosis Rectum: Normal Ano-rectum: Large internal hemorrhoids - likely source of rectal bleeding Colon preparation: Excellent after some irrigation. [place] Bowel Preparation Scale Right colon; 3 Transverse colon: 3 Left colon; 3 (0 = Unprepared colon segment with mucosa not seen due to solid stool that cannot be cleared. 1 = Portion of mucosa of the colon segment seen, but other areas of the colon segment not well seen due to staining, residual stool and/or opaque liquid. 2 = Minor amount of residual staining, small fragments of stool and/or opaque liquid, but mucosa of colon segment seen well. 3 = Entire mucosa of colon segment seen well with no residual staining, small fragments of stool or opaque liquid) Impression and Post Procedure Diagnosis: Colonoscopy Findings: One medium sized polyp was removed Moderate diverticulosis seen in the sigmoid colon Large hemorrhoids on retroflexed exam - likely source of rectal bleeding. Plan: I will send a letter with biopsy results. Pt advised to use hydrocortisone cream and a fibre supplement for hemorrhoids. If bleeding persists, consider referral to surgery for hemorrhoidectomy versus band ligation of hemorrhoids. Repeat Colonoscopy in 3-5 years if polyps are adenomatous and 10 year if polyps are hyperplastic. Above findings were reviewed with the patient and relevant handouts were given and the discharge area.
[2024-10-19 13:16] VITALS: BP 126/87; PULSE 82; RESP 18; TEMP 36.6; O2SAT 96
[2024-10-19 13:31] VITALS: BP 121/90; PULSE 72; RESP 18; TEMP 36.4; O2SAT 98
[2024-10-19 13:46] VITALS: BP 136/90; PULSE 71; RESP 16; TEMP 36.4; O2SAT 98
== END 2024-10-19 14:16 | disposition home or self-care (01) ==
PROVIDERS: PCP Physician Assistant Medical; Visit Provider Internal Medicine Gastroenterology
PROC: 0DJD8ZZ Inspection of Lower Intestinal Tract, Via Natural or Artificial Opening Endoscopic (ICD-10-PCS; CPT 45378; principal; 2024-10-19 13:00)
DX: Z12.11 Encounter for screening for malignant neoplasm of colon (principal); D12.2 Benign neoplasm of ascending colon; K57.30 Diverticulosis of large intestine without perforation or abscess without bleeding; K64.8 Other hemorrhoids; E78.5 Hyperlipidemia, unspecified; R03.0 Elevated blood-pressure reading, without diagnosis of hypertension; E73.9 Lactose intolerance, unspecified; R07.89 Other chest pain; L98.9 Disorder of the skin and subcutaneous tissue, unspecified; Z79.899 Other long term (current) drug therapy; Z88.0 Allergy status to penicillin; Z87.891 Personal history of nicotine dependence
CPT/HCPCS: 45385; 88305; J2003; J2704

== ENCOUNTER → 2024-10-19 11:10 | Outpatient (BNV) | payer BC, SELFPAY | PROVIDERS: PCP Physician Assistant Medical; Visit Provider Internal Medicine Gastroenterology | DX: Z12.11 Encounter for screening for malignant neoplasm of colon (principal); K62.5 Hemorrhage of anus and rectum; D12.2 Benign neoplasm of ascending colon; K57.30 Diverticulosis of large intestine without perforation or abscess without bleeding | CPT/HCPCS: 45385 ==

== ENCOUNTER 2025-07-01 10:19 | Outpatient (AMB) | payer BC, SELFPAY ==
--- NOTE | 2025-07-01 10:50 | A.OFFPC_ITS ---
Vital Signs 07/01/25 10:54 Height 6 ft 1 in Weight 193 lb 6 oz BMI 25.5 BP 118/82 Blood Pressure Location Lt brachial Position Sitting Respiration 16 Pulse 85 Pulse Source Pulse Oximeter Temp 97.6 F Temp Source Temporal Artery Scan Pulse Oximetry (%) 97 Oxygen Delivery Method Room Air Intake Visit Reasons: CPE Intake Note: Rishabh presents in the office today for his annual physical. Allergies penicillin V Allergy (Unknown, Verified 07/01/25 10:52) had an episode of rash when he was a child Medication List - Last Reconciled 07/01/25 by JASEN Curtis hydrocortisone 2.5% 1 appl [place] BID-QID PRN 10 days Tobacco use date assessed: 07/01/25 Dental Screening Dental Screen Date: 07/01/25 Did you have a dental visit in the last 12 months?: Yes Did you have a dental problem in the last 6 months where you did not have access to dental care?: No Was dental information given to patient?: Patient has dentist HPI HPI Comments History of Present Illness Details This is a 55-year-old male with a past medical history of hyperlipidemia presenting for a physical exam. He has hyperlipidemia which improved after lifestyle modfications. Colonoscopy up to date. Recommended in 3 years (October 2025). Patient takes Centrum and osteo biflex. Declines tetanus and influenza vaccine. Discussed shingles and pneumonia vaccine. ROS: Constitutional: No unexplained weight loss, fever, chills, fatigue or night sweats. Eyes: No vision changes, blurry vision, double vision, eye pain, eye redness, eye discharge. ENT: No hearing loss, sneezing, congestion, runny nose or sore throat. Respiratory: No shortness of breath, cough or sputum production. Cardiovascular: No chest pain, chest pressure or chest discomfort. No palpitations or pedal edema. Gastrointestinal: No anorexia, nausea, vomiting or diarrhea. No abdominal pain or blood in stool. Genitourinary: No dysuria, hematuria, urinary frequency. Neurologic: No headache, dizziness, syncope, unilateral weakness, ataxia, numbness or tingling in the extremities. Musculoskeletal: No muscle pain, back pain, joint pain or swelling. Hematologic/Lymphatics: No bleeding or bruising. No painful lymph nodes. Skin: No rash Endocrine: No cold or heat intolerance. No polyuria or polydipsia. Psychiatric: No depression or anxiety. No SI/HI. Physical exam: Constitutional: Alert, in no distress. Eyes: Pupils are equal, round and reactive to light. Extraocular muscles intact. Ear, Nose and Throat: Canals clear. TMs normal. Normal nasal mucosa. No nasal discharge. No oral lesions. Neck: Supple, Full range of motion. No lymphadenopathy. No palpable thyroid masses. Respiratory: Clear to auscultation. Cardiovascular: S1 S2 regular. No murmurs. No carotid bruits. Gastrointestinal: Abdomen soft, non-tender, non-distended. Normal bowel sounds. No palpable masses. Genitourinary: Deferred. Neurologic: No focal neurological deficits. Symmetric patellar reflexes. Moves all extremities spontaneously. Sensation intact bilaterally. Skin: No rashes Musculoskeletal: No gross deformities. Normal range of motion. Extremities: Warm and well perfused. No clubbing, cyanosis or edema. Intact peripheral pulses bilaterally. Psychiatric: Normal mood and affect [facility] Medical History (Updated 07/01/25 @ 11:16 by JASEN Curtis) Routine physical examination Elevated blood pressure reading Chest discomfort Hyperlipidemia Skin lesion Family History Mother HTN (hypertension) Cardiovascular disease Ovarian cancer Glaucoma Father Alcoholism Other FHx: mental illness Substance abuse Social History (Updated 07/01/25 @ 10:53 by Porsha Clay CMA) Housing: House Alcohol intake: current Patient Tobacco Use Status: Former Tobacco user Cigarette Packs Per Day: 0.5 Years Smoked: 32 e-Cigarette/Vaping Use: Never Used Second Hand Smoke Exposure: No service: No Current occupational status: employed Current occupation: [employer] Current occupational exposures/hazards: No Cognitive needs: No Hearing needs: No Vision needs: No Questionnaire PHQ-9 Over the last 2 weeks, how often have you been bothered by any of the following problems? 1. Little interest or pleasure in doing things: not at all 2. Feeling down, depressed, or hopeless: not at all 3. Trouble falling or staying asleep, or sleeping too much: not at all 4. Feeling tired or having little energy: several days 5. Poor appetite or overeating: not at all 6. Feeling bad about yourself - or that you are a failure or have let yourself or your family down: several days 7. Trouble concentrating on things, such as reading the newspaper or watching television: several days 8. Moving or speaking so slowly that other people could have noticed. Or the opposite - being so fidgety or restless that you have been moving around a lot more than usual: not at all 9. Thoughts that you would be better off or of hurting yourself in some way: not at all Total score: 3 Depression Screening Interpretation: Negative Depression Screening Done: Yes 70148 - PHQ-9 Billing: Yes Source: Developed by Drs. Carlos Manuel Carpio, Ceci Adhikari, John Antonio and colleagues, with an educational hiro from [employer]. Thrive Questionnaire Date Thrive assessed: 07/01/25 I am a: Patient What is your living situation today?: I have a steady place to live Within the past 12 months, did the food you bought not last and you didn't have the money to get more?: Never true Within the past 12 months, did you worry whether your food would run out before you got money to buy more?: Never true Do you have trouble paying for medicines?: No Do you have trouble paying your heating and electricity bill?: No Do you have trouble taking care of your child, family member or friend?: No Do you have trouble with day-to-day activities such as bathing, preparing meals, shopping, managing finances, etc.?: No Are you currently unemployed and looking for a job?: No Are you interested in more education?: No Please select the resources that you would like help with: None Currently or been in a relationship where the following occur: No concerns reported THRIVE Score: 0 AUDIT C Alcohol Use Questionnaire (AUDIT-C) 1. How often do you have a drink containing alcohol?: Monthly or less 2. How many drinks containing alcohol do you have on a typical day when you are drinking?: 1 or 2 3. How often do you have six or more drinks on one occasion?: Never Total Score: 1 TREVIN-7 AMB Questionnaire TREVIN-7 Date TREVIN - 7 assessed: 07/01/25 Feeling nervous, anxious, or on edge: 0 = Not at all Not being able to stop or control worryin = Several days Worrying too much about different things: 1 = Several days Trouble relaxin = Not at all Being so restless that it is hard to sit still: 0 = Not at all Becoming easily annoyed or irritable: 1 = Several days Feeling afraid as if something awful might happen: 1 = Several days Total TREVIN-7 score (0-4 normal; 5-9 mild; 10-14 moderate; 15-21 severe): 4 Source: Developed by Drs. Carlos Manuel Carpio, Ceci Adhikari, John Antonio and colleagues, with an educational hiro from [employer]. TREVIN-7 Assessment Billing TREVIN-7 Assessment Tool: TREVIN-7 Assessment 75390 Physical exam (Primary Care) Vital Signs: Last Vital Signs Temp 97.6 F 07/01/25 10:54 Pulse 85 07/01/25 10:54 Resp 16 07/01/25 10:54 BP 118/82 07/01/25 10:54 Pulse Ox 97 07/01/25 10:54 Oxygen Delivery Method Room Air 07/01/25 10:54 BMI result Body Mass Index 25.5 Tobacco/Smoking Status: Tobacco use Status Tobacco use date assessed 07/01/25 07/01/25 10:58 Patient Tobacco Use Status Former Tobacco user 07/01/25 10:53 e-Cigarette/Vaping Use Never Used 07/01/25 10:53 PHQ-9: PHQ-9 Score PHQ-9: Total score 3 07/01/25 11:15 Depression Screening Interpretation: Negative Thrive Assessment: Date of Thrive Assessment Date Thrive assessed 07/01/25 07/01/25 11:09 Currently or been in a relationship where the following occur: No concerns reported Coding Level of Care Code New Pt Prev Care 40-64y(94729) Diagnoses Routine physical examination Z00.00 Mixed hyperlipidemia E78.2 Hyperlipidemia type: mixed hyperlipidemia Additional Codes TREVIN-7 Assessment Billing - TREVIN-7 Assessment Tool: TREVIN-7 Assessment 79048 ([id number]) PHQ-9 - 23016 - PHQ-9 Billing: Yes ([id number]) Assessment & Plan Assessment & Plan (1) Routine physical examination: Code(s): Z00.00 - Encounter for general adult medical examination without abnormal findings Category: Medical (2) Hyperlipidemia: Code(s): E78.5 - Hyperlipidemia, unspecified Category: Medical Qualifiers: Hyperlipidemia type: mixed hyperlipidemia Qualified Code(s): E78.2 - Mixed hyperlipidemia Plan Patient is seen today for a routine physical. As part of this visit we reviewed the following issues, which are considered and essential part of preventative health in this age group: - Testicular cancer screening, which includes self exam teaching - Screening for colon cancer - Discussed Prostate cancer screening - Blood pressure screening - Cholesterol screening - Nutritional and exercise counseling - Screening for depression - Education about skin cancer - Recommendations about immunizations - Recommendation of an eye exam - Screening for substance abuse Return in 1 year for CPE. Orders: Orders Prostate Specific Antigen Today E78.2 - Mixed hyperlipidemia, R03.0 - Elevated blood-pressure reading, without diagnosis of hypertension, Z00.00 - Encounter for general adult medical examination without abnormal findings, Z12.5 - Encounter for screening for malignant neoplasm of prostate Comprehensive Met. Panel Today E78.2 - Mixed hyperlipidemia, R03.0 - Elevated blood-pressure reading, without diagnosis of hypertension, Z00.00 - Encounter for general adult medical examination without abnormal findings Complete Blood Count no Diff Today E78.2 - Mixed hyperlipidemia, R03.0 - Elevated blood-pressure reading, without diagnosis of hypertension, Z00.00 - Encounter for general adult medical examination without abnormal findings Lipid Panel Today E78.5 - Hyperlipidemia, unspecified, R03.0 - Elevated blood- pressure reading, without diagnosis of hypertension, Z00.00 - Encounter for general adult medical examination without abnormal findings
[2025-07-01 10:54] VITALS: BP 118/82; PULSE 85; RESP 16; TEMP 36.4; O2SAT 97; BMI 25.5
--- OUTSIDE RECORDS SUMMARY | 2025-07-01 12:34 | XMS_ITS | Clinical Summary ---
Author Organization [facility] Address [address] [place] [address] Phone Care Team Providers Care Desktop Support Engineer Name Role Phone Harjit Billy MD Primary Care Provider [phone] Allergies No known active allergies Medications ondansetron (ZOFRAN-ODT) 4 MG disintegrating tablet Take 1 tablet (4 mg total) by mouth every 8 (eight) hours as needed for nausea. 10 tablet 2 Active albuterol 90 mcg/actuation inhaler Inhale 2 puffs into the lungs every 6 (six) hours as needed for wheezing or shortness of breath/dyspne a. 18 g 2 Active inhaler spacing device (AEROCHAMBER,BREAT HERITE) Spcr Inhale 1 each into the lungs every 6 (six) hours as needed. 1 each 2 Active Active Problems No known active problems Social History Tobacco Use Types Packs/Day Years Used Date Smoking Tobacco: Never Assessed Education Answer Date Recorded Are you interested in more education? Not on anthony e 12/14/2022 Are you concerned about learning? Not on file 12/14/2022 No 12/14/2022 No 12/14/2022 Digital Access Answer Date Recorded No 01/12/2023 No 01/12/2023 Reliable internet access at home? Not on file 01/12/2023 Device with a working camera? Not on file Sex and Gender Information Value Date Recorded Sex Assigned at Male 08/22/2021 1:21 PM EST Legal Sex Male 9:33 PM EDT Gender Identity Male 08/22/2021 1:21 PM EST Sexual Orientation Not on file Last Filed Vital Signs Vital Sign Reading Time Taken Comments Blood Pressure 119/79 08/22/2021 1:21 PM EST Pulse 107 08/22/2021 1:19 PM EST Temperature 37.3 C (99.1 F) 08/22/2021 1:19 PM EST Respiratory Rate 18 08/22/2021 1:19 PM EST Oxygen Saturation 99% 08/22/2021 1:19 PM EST Inhaled Oxygen Concentration - - Weight 93 kg (205 lb) 08/22/2021 1:19 PM EST Height 185.4 cm (6' 1 ) 08/22/2021 1:19 PM EST Body Mass Index 27.05 08/22/2021 1:19 PM EST Plan of Treatment Health Maintenance Due Date Last Done Comments Adult Td,Tdap Booster 1971 LIPID PANEL 1971 DEPRESSION SCREENING 1983 SMOKING Hx and SMOKELESS TOB ACCO SCREENING 1984 HEPATITIS C SCREENING 1989 HIV ONE-TIME SCREENING (18-6 5 YEARS) 1989 COLOGUARD 2016 COLONOSCOPY 2016 COLORECTAL CANCER SCREENING 2016 FIT TEST 2016 FOBT 2016 SIGMOIDOSCOPY 2016 VIRTUAL COLONOSCOPY 2016 PNEUMOCOCCAL VACCINES (50+ y ears) (1 of 1 - PCV) 2021 ZOSTER VACCINES (1 of 2) 2021 INFLUENZA VACCINE (#1) 2025 COVID-19 VACCINE (1 - 2024-2 6 season) 2025 RSV VACCINE (1 - 1-dose 75+ series) 2046 HEPATITIS A VACCINES Aged Out No long er eligible based on patient's age to complete this topic HIB VACCINES Aged Out No longer eligi ble based on patient's age to complete this topic IPV VACCINES Aged Out No longer eligi ble based on patient's age to complete this topic MENINGOCOCCAL VACCINES (ACWY) Aged Out No longer eligible based on patient's age to complete this topic MENINGOCOCCAL VACCINES (B) Aged Out N o longer eligible based on patient's age to complete this topic Medical Devices Not on file Insurance BLUE CROSS OUT OF STATE PPO BLUE CROSS OUT OF STATE PPO BLUE CROSS OUT OF STATE PPO BLUE CROSS OUT OF STATE PPO BLUE CROSS OUT OF STATE PPO BLUE [place] OUT OF STATE PPO BLUE CROSS OUT OF STATE PPO BLUE CROSS OUT OF STATE PPO [facility] OUT OF STATE PPO Care Teams Desktop Support Engineer Relationship Specialty Start Date End Date Harjit Billy MD [address] [place] [address] [place] [address] PCP - General Internal Medicine 08/22/21 Additional Source Comments The information contained in this document represents components of the legal health record. It is not the complete legal health record.[facility]
== END 2025-07-01 11:28 | disposition home or self-care (01) ==
LOC: HO.HMCFM 10:20
PROVIDERS: PCP Physician Assistant Medical; Visit Provider Physician Assistant Medical
DX: Z00.00 Encounter for general adult medical examination without abnormal findings (principal); E78.2 Mixed hyperlipidemia

== ENCOUNTER 2025-07-01 10:19 | Outpatient (REF) | payer BC, SELFPAY ==
[2025-07-01 14:31] LABS: Hematocrit 46.6 % (42.0-52.0); Hemoglobin 15.9 g/dl (14.0-18.0); Mean Corpuscular HGB Conc 34.1 g/dl (31.0-36.0); Mean Corpuscular Hemoglobin 30.2 pg (27.0-33.0); Mean Corpuscular Volume 88.4 fL (80.0-98.0); NRBC Abs Auto 0.000 X10*3/uL (0.0-0.012); NRBC Pct Auto 0.0 /100WBC (0.0-0.2); Platelet Count 224 X10*3/uL (160-400); Red Blood Count 5.27 X10*6/uL (4.60-5.80); White Blood Count 4.4 X10*3/uL (4.8-10.8)
[2025-07-01 14:57] LABS: Alanine Aminotransferase 44 U/L (0-40); Albumin Level 4.8 g/dL (3.5-5.0); Alkaline Phosphatase 59 U/L (39-117); Anion Gap 10 (12-20); Aspartate Amino Transferase 30 U/L (5-37); Blood Urea Nitrogen 14 mg/dL (9-16); Calcium 9.4 mg/dL (8.4-10.2); Carbon Dioxide 29 mmol/L (22-29); Chloride 106 mmol/L (96-108); Cholesterol 246 mg/dL (<200); Estimated Glomerular Filt Rate > 60; HDL Cholesterol 46 mg/dL (>40); Potassium 4.1 mmol/L (3.3-5.1); Sodium 141 mmol/L (135-145); Total Protein 7.2 g/dL (6.5-8.0); Triglycerides 255 mg/dL (<150)
[2025-07-01 15:14] LABS: Prostate Specific Antigen 4.38 ng/mL (<0.05-4.0)
== END 2025-07-01 10:20 | disposition home or self-care (01) ==
LOC: HO.WFDLDS 10:19
PROVIDERS: PCP Physician Assistant Medical; Visit Provider Physician Assistant Medical
DX: Z00.00 Encounter for general adult medical examination without abnormal findings (principal); Z12.5 Encounter for screening for malignant neoplasm of prostate; E78.2 Mixed hyperlipidemia; R03.0 Elevated blood-pressure reading, without diagnosis of hypertension; E78.5 Hyperlipidemia, unspecified; Z79.899 Other long term (current) drug therapy
CPT/HCPCS: 36415; 80053; 80061; 84153; 85027; 96127

== ENCOUNTER 2025-08-05 09:28 | Outpatient (AMB) | payer BC, SELFPAY ==
--- NOTE | 2025-08-05 09:38 | MHC.OFFVIS ---
Intake Visit Reasons: rising PSA-0.74 2023 and 4.38 now SET UA Intake Note: Reason for Visit: New Patient Rising PSA Urology Meds: None Blood Thinners: None Antibiotic Allergy: Penicillin Labs: PSA- 0.74 (01/30/24) PSA- 4.38 (07/01/2025) Imaging: None Last PVR: None Family History: Prostate Cancer? no Bladder Cancer? no Kidney Cancer? no Smoking History? Former Previous Urology? no Varnish Finisher Required: No Accompanied by: Self / Same As Patient Allergies penicillin V Allergy (Unknown, Verified 08/05/25 09:52) had an episode of rash when he was a child HPI Comments Details: Alan is a pleasant male. He is a patient of Dr. Spangler. 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 Elevated PSA Labs - 02/09 0.7, 07/13 4.4 PFSH Medical History (Updated 08/05/25 @ 10:17 by Jose Manuel Ceballos MD) Decreased white blood cell count Elevated PSA Routine physical examination Elevated blood pressure reading Chest discomfort Hyperlipidemia Skin lesion Family History Mother HTN (hypertension) Cardiovascular disease Ovarian cancer Glaucoma Father Alcoholism Other FHx: mental illness Substance abuse Social History (Updated 07/01/25 @ 10:53 by Porsha Clay CMA) Housing: House Alcohol intake: current Patient Tobacco Use Status: Former Tobacco user Cigarette Packs Per Day: 0.5 Years Smoked: 32 e-Cigarette/Vaping Use: Never Used Second Hand Smoke Exposure: No service: No Current occupational status: employed Current occupation: [employer] Current occupational exposures/hazards: No Cognitive needs: No Hearing needs: No Vision needs: No Review of Systems Const Denies chills and Denies fever(s) Card Reports no additional complaints and Denies syncope Resp Denies cough GI Denies abdominal pain and Denies heartburn Reports as per HPI and Denies change in libido Neuro Denies syncope Psych Denies change in libido Endo Denies change in libido Physical Exam Const General: cooperative, healthy appearing, comfortable and no acute distress Orientation/consciousness: patient oriented x3 HEENT Face and sinus: Yes normal facial exam Mouth: moist mucous membranes Neck Neck: Yes normal visual inspection, Yes full ROM and Yes trachea midline Chest Chest palpation & inspection: normal inspection of the chest Resp Effort & Inspection: normal respiratory effort, able to speak in complete sentences and no respiratory distress GI Inspection: Yes normal to inspection Rectal Exam - Male: Yes normal sphincter tone and Yes prostate normal Male General Exam: Yes normal external exam Penis: normal penis and circumcised Meatus: meatus normal Scrotum: scrotum normal Testes: Testes normal Back/Spine/Pelvis Cervical Spine: normal cervical lordosis Thoracic/Lumbar Spine: thoracic and lumbar spine normal to inspection Skin General skin exam: no rashes or lesions noted Neuro General: patient oriented x3, gait normal, tone normal and moves all extremities Extrem General: Yes normal to inspection and Yes capillary refill normal Assessment & Plan Assessment & Plan (1) Prostatitis: Code(s): N41.9 - Inflammatory disease of prostate, unspecified Category: Medical (2) Elevated PSA: Code(s): R97.20 - Elevated prostate specific antigen [PSA] Category: Medical Plan Prostatitis package PSA follow-up three-month Orders: Orders Prostate Specific Antigen 3 Months N41.9 - Inflammatory disease of prostate, unspecified Medications: New sulfamethoxazole-trimethoprim 800-160 mg (Bactrim DS) 1 tab PO BID 28 tabs 0RF 14 days N41.9 - Inflammatory disease of prostate, unspecified meloxicam 15 mg PO DAILY 30 tabs 0RF 30 days N41.9 - Inflammatory disease of prostate, unspecified prednisone 20 mg PO DAILY 5 tabs 0RF 5 days N41.9 - Inflammatory disease of prostate, unspecified Patient Instructions: This note is constructed using voice recognition software. While every effort has been made to ensure accuracy senior recruiter errors may have been included. Imaging studies, laboratory and physical exam results were discussed and reviewed in detail. No major barriers to patient understanding were identified. An opportunity to ask questions regarding the treatment plan was provided. All questions were answered. The patient expressed understanding and agreement with the above treatment plan. The patient is aware they should contact our office by phone for worsening of their current condition or the appearance of new urologic symptoms. Compliance is encouraged with any medications and followup testing that is ordered. It is a privilege to participate in the urologic care of your patient. If you have any questions or concerns regarding treatment for the above conditions, or other urologic issues, please do not hesitate to contact me. The office telephone contact is [phone]. Sincerely, Dr Jose Manuel Ceballos MD, [facility] - Urology Compassionate Specialist Care for the Genitourinary System Coding Level of Care Code New Pt Level 4 (50242) Diagnoses Prostatitis N41.9 Elevated PSA R97.20
--- OUTSIDE RECORDS SUMMARY | 2025-08-05 10:51 | XMS_ITS | Clinical Summary ---
Author Organization [facility] Address [address] [place] [address] Phone Care Team Providers Care Graduate School Dean Name Role Phone Harjit Billy MD Primary Care Provider [phone] Allergies No known active allergies Medications ondansetron [...] PPO BLUE CROSS OUT OF [place] [address] [place] [address] [address] [place] [address] [place] [address] OUT [facility] PPO Care Teams Graduate School Dean Relationship Specialty Start Date End Date Harjit Billy MD [address] [place] [address] [place] [address] PCP - General Internal Medicine 08/22/21 Additional Source Comments The information contained in this document represents components of the legal health record. It is not the complete legal health record.[facility]
== END 2025-08-05 10:25 | disposition home or self-care (01) ==
LOC: HO.HUSH 09:28
PROVIDERS: PCP Physician Assistant Medical; Visit Provider Urology
DX: N41.9 Inflammatory disease of prostate, unspecified (principal); R97.20 Elevated prostate specific antigen [PSA]
CPT/HCPCS: 99204